=== PATIENT | female | born 1960 | race Caucasian/White ===

== ENCOUNTER 2023-05-08 13:13 | Emergency (ER) | payer MEDICARE, MEDICAID, SELFPAY ==
[2023-05-08] VITALS (7 sets, daily range): BP systolic 144–173; BP diastolic 74–90; PULSE 61–74; RESP 16–20; TEMP 36.8; O2SAT 97–98; BMI 27.4
--- NOTE | 2023-05-08 13:31 | XR_ITS ---
FINAL REPORT CLINICAL HISTORY: fall, pain FINDINGS: Right hip Three views were obtained. There is no acute fracture or dislocation. The joint spaces appear normal. No soft tissue abnormality is identified. IMPRESSION: No acute process. Reviewed, Interpreted and Dictated by Edgar Garcias MD Transcribed by Minna Chiu Authenticated and . [facility]
--- NOTE | 2023-05-08 13:31 | XR_ITS ---
FINAL REPORT CLINICAL HISTORY: fall, pain FINDINGS: Left wrist Three views were obtained. There is no acute fracture or dislocation. There is severe osteopenia. Patient is status post ORIF changes of the distal radius. No soft tissue abnormality is identified. IMPRESSION: No acute bony abnormality. Reviewed, Interpreted and Dictated by Edgar Garcias MD Transcribed by Minna Chiu Authenticated and [facility]
--- NOTE | 2023-05-08 13:31 | XR_ITS ---
FINAL REPORT CLINICAL HISTORY: fall, pain FINDINGS: Left hand Three views were obtained. There is no acute fracture or dislocation. There is severe osteopenia. Patient is status post ORIF changes of the distal radius. No soft tissue abnormality is identified. IMPRESSION: No acute bony abnormality. Reviewed, Interpreted and Dictated by Edgar Garcias MD Transcribed by Minna Chiu Authenticated and [facility]
--- NOTE | 2023-05-08 13:31 | XR_ITS ---
FINAL REPORT CLINICAL HISTORY: fall, pain FINDINGS: Right femur Two views were obtained. There is no acute fracture or dislocation. The joint spaces appear normal. No soft tissue abnormality is identified. IMPRESSION: No acute process. Reviewed, Interpreted and Dictated by Edgar Garcias MD Transcribed by Minna Chiu Authenticated and . [facility]
--- NOTE | 2023-05-08 13:33 | HMH.EDGENADL ---
Discharge Plan Disposition Patient Disposition: Home, Self-Care Condition: Good Prescriptions Prescriptions: New naproxen 500 mg tablet 500 mg PO BID PRN (Reason: pain) Qty: 20 0RF Referrals Follow up/Referrals: Joel Garcia [Primary Care Provider] - See instructions Activity Restrictions/Add. Instructions Additional Instructions/Restrictions: You were evaluated in the emergency department today. Please follow-up closely with your primary care provider. hook up driver your prescription for naproxen and take as needed for pain. Return to the emergency department for any new or worsening symptoms. Clinical Impressions Clinical Impression: Contusion of hand, left, Low back strain, Strain of muscle of right hip Instructions Patient Instructions: DI for Acute Pain -- Adult Discharge ED Provider: Lynnette Ojeda General Adult HPI General Chief complaint: PAIN Stated complaint: AO7/@home, pain in Lt hand, Rt hip Time Seen by Provider: 05/08/23 13:17 Mode of Arrival: Ambulatory Source of Information: Patient Limitations: No Limitations Description of Symptoms (Recalled from ER Triage Doc. by RN): 63 yo F presents to ED with complaints of left hand, right hip, right lower back. pt reports two days ago she was walking her dog when her dog ran off to catch an animal, in turn dragging the pt a few feet when she stumbled over her own feet and fell. History of Present Illness HPI narrative: This patient is a 63-year-old female who reports a history of degenerative disc disease presenting to the emergency department for evaluation with concern for left hand/wrist pain and right hip pain that have been ongoing since a fall that happened 2 days ago. Patient reports that she was walking her pit bull, who pulled her down to the ground. She fell onto her left side. She did not hit her head or lose consciousness. She denies any use of anticoagulation. She states that it feels like something is catching in her right hip when she walks and she has bruising and pain to her left hand. She is concerned that she may have broken her hand. She denies any numbness, tingling, saddle anesthesia, weakness, or other concerns. She is otherwise ambulatory. Related Data Previous Rx's Medication Instructions Recorded naproxen 500 mg tablet 500 mg PO BID PRN pain #20 tabs 05/08/23 Allergies Allergy/AdvReac Type Severity Reaction Status Date / Time From Phenazopyridine HCl Allergy Unknown NA-NAUSEA/V Uncoded 10/02/17 15:04 OMITING INGREDIENT: NO KNOWN - NO Allergy Unknown Uncoded 10/02/17 15:04 KNOWN DRUG [facility]ERGY [facility] Disclaimer: The information contained in this section may have been updated after the patient was seen, as this information can be updated by other users. Social History Smoking Status: Never smoker alcohol intake: never current occupational status: retired Travel in the last 8 weeks: None ROS Obtained: Yes All systems reviewed & no additional complaints except as documented 14 point review of systems obtained and negative except as mentioned in HPI. Physical Exam General General appearance: alert and in no apparent distress Head Head exam: atraumatic and normocephalic Eye Eye exam: Present normal appearance, PERRL and EOMI ENT ENT exam: Present normal exam, normal oropharynx and mucous membranes moist Neck Neck exam: Present normal inspection, full ROM and trachea midline; Absent tenderness Chest Chest inspection: Present normal inspection and symmetric chest wall rise; Absent tenderness Respiratory Respiratory exam: Present normal lung sounds bilaterally; Absent respiratory distress or wheezes Cardiovascular Cardiovascular exam: Present regular rate and normal rhythm Abdominal Exam Abdominal exam: Present soft; Absent distention, tenderness or guarding Expanded Upper Extremity Exam Left: Hand exam: Present tenderness and
--- NOTE | 2023-05-08 15:23 | PC.NURSE ---
notified ER pt rad results are in the computer
== END 2023-05-08 15:36 | disposition home or self-care (01) ==
PROVIDERS: Emergency Provider Emergency Medicine; PCP Internal Medicine
DX: S76.011A Strain of muscle, fascia and tendon of right hip, initial encounter (principal); S39.012A Strain of muscle, fascia and tendon of lower back, initial encounter; S60.222A Contusion of left hand, initial encounter; W54.8XXA Other contact with dog, initial encounter
CPT/HCPCS: 73110; 73130; 73502; 73552; 99285